=== PATIENT | female | born 1945 | race African-American/Black ===

== ENCOUNTER 2022-02-05 07:43 | Inpatient (IN) | payer OTHER, MEDICAID ==
[~2022-02-05] VITALS: Ht 165.1 cm; Wt 67.8 kg
[2022-02-05 08:48] LABS: BASOPHILS % 0.8 % (0.0-2.0); EOSINOPHILS % 0.8 % (0.0-5.0); HEMATOCRIT. 33.5 % (36.0-48.0); HEMOGLOBIN. 10.8 g/dL (12.0-16.0); LYMPHOCYTES % 16.6 % (20.0-50.0); MEAN CORPUSCULAR HEMOGLOBIN 27.3 pg (28.0-32.0); MEAN CORPUSCULAR VOLUME 84.6 fL (81.0-99.0); MEAN PLATELET VOLUME 10.2 fl (7.4-10.4); MONOCYTES % 11.3 % (2.0-8.0); NEUTROPHILS % 70.5 % (40.0-76.0); PLATELET 177 x1000/uL (130-400); RED BLOOD CELL COUNT 3.96 mill/uL (4.2-5.4); RED CELL DISTRIBUTION WIDTH 14.2 % (11.6-14.6)
[2022-02-05 08:58] LABS: CHLORIDE 105 mEq/L (98-107)
[2022-02-05] MEDS ORDERED: ASPIRIN 325MG EC TABLET PO ONE (09:30)
[2022-02-05] MEDS ORDERED: ENOXAPARIN 60MG/0.6ML SYR SUBCUT ONE (09:30)
[2022-02-05 09:56] LABS: CLARITY URINE CLEAR (CLEAR); COLOR URINE DARK YELLOW (YELLOW); KETONES URINE TRACE (NEGATIVE); LEUKOCYTE ESTERASE URINE TRACE (NEGATIVE); NITRITE URINE NEGATIVE (NEGATIVE); OCCULT BLOOD URINE NEGATIVE (NEGATIVE); PROTEIN URINE 3+ (NEGATIVE); SPECIFIC GRAVITY URINE 1.028 (1.005-1.030)
[2022-02-05] MEDS ORDERED: ACETAMINOPHEN 325MG TABLET PO ONE (11:15)
[2022-02-05] MEDS ORDERED: ONDANSETRON HCL 4MG/2ML INJ IV ONE (12:15)
[2022-02-05] MEDS ORDERED: GUAIFENESIN 200MG/10ML SUGAR FREE UDC PO PRN (13:00)
[2022-02-05] MEDS ORDERED: ACETAMINOPHEN 325MG TABLET PO PRN ×2 (13:00)
[2022-02-05] MEDS ORDERED: ZOLPIDEM TARTRATE 5MG TABLET PO PRN (13:00)
[2022-02-05] MEDS ORDERED: CLONIDINE 0.1MG TABLET PO PRN (13:00)
[2022-02-05] MEDS ORDERED: ENOXAPARIN 40MG/0.4ML SYR SUBCUT SCH (13:00)
[2022-02-05] MEDS ORDERED: NITROGLYCERIN 0.4MG TABLET SL SL PRN (13:00)
[2022-02-05] MEDS ORDERED: MAGNESIUM/ALUMINUM HYDROXIDE/SIMETHICONE 30ML UDC PO PRN (13:00)
[2022-02-05] MEDS ORDERED: IPRATROPIUM/ALBUTEROL 0.5-3(2.5)MG/3ML NEB NEB PRN (13:00)
[2022-02-05] MEDS ORDERED: DOCUSATE SODIUM 100MG CAPSULE PO PRN (13:00)
[2022-02-05] MEDS ORDERED: ONDANSETRON HCL 4MG/2ML INJ IV PRN (13:00)
[2022-02-05] MEDS ORDERED: KETOROLAC 15MG/ML VIAL IV PRN (13:00)
[2022-02-05 14:28] LABS: VITAMIN B12 SERUM 1518 pg/mL (211-911)
[2022-02-05 14:29] LABS: FOLIC ACID (FOLATE) SERUM > 20.00 ng/mL (>5.38)
[2022-02-05] MEDS: NITROGLYCERIN OINT 1GM/INCH UDPKT TD SCH ×2 (14:34→21:13)
[2022-02-05 15:07] LABS: CREATINE KINASE MB FRACTION 1.4 ng/mL (0.5-3.6)
[2022-02-05] MEDS: FUROSEMIDE 40MG/4ML VIAL IVP SCH (16:20)
[2022-02-05 18:01] VITALS: BP 145/83
[2022-02-05 18:04] VITALS: BP 145/83
[2022-02-05] MEDS ORDERED: SPIR25TA6 PO (18:22)
[2022-02-05] MEDS ORDERED: FURO-152 PO (18:22)
[2022-02-05] MEDS ORDERED: ATOR40TA70 PO (18:22)
[2022-02-05] MEDS ORDERED: COR6 PO (18:22)
[2022-02-05] MEDS ORDERED: ASPI-1497 PO (18:22)
[2022-02-05] MEDS ORDERED: AMLO5TAB4 PO (18:22)
[2022-02-05 20:00] VITALS: BP 151/85
[2022-02-05] MEDS: ATORVASTATIN CALCIUM 40MG TABLET PO SCH (21:13)
[2022-02-05] MEDS: LISINOPRIL 20MG TABLET PO SCH (21:13)
[2022-02-05 23:44] LABS: CREATINE KINASE MB FRACTION 1.5 ng/mL (0.5-3.6)
[2022-02-06] VITALS: BP 132/75
[2022-02-06 04:00] VITALS: BP 148/86
[2022-02-06] MEDS: NITROGLYCERIN OINT 1GM/INCH UDPKT TD SCH ×3 (06:18→22:00)
[2022-02-06 06:58] LABS: HEMATOCRIT. 30.9 % (36.0-48.0); HEMOGLOBIN. 10.3 g/dL (12.0-16.0); MEAN CORPUSCULAR HEMOGLOBIN 27.8 pg (28.0-32.0); MEAN CORPUSCULAR VOLUME 83.2 fL (81.0-99.0); MEAN PLATELET VOLUME 10.3 fl (7.4-10.4); PLATELET 158 x1000/uL (130-400); RED BLOOD CELL COUNT 3.72 mill/uL (4.2-5.4); RED CELL DISTRIBUTION WIDTH 14.5 % (11.6-14.6)
[2022-02-06 07:21] LABS: CHLORIDE 104 mEq/L (98-107)
[2022-02-06 07:32] LABS: PHOSPHORUS 4.9 mg/dL (2.5-4.9)
[2022-02-06 08:00] VITALS: BP 151/73
[2022-02-06] MEDS: ASPIRIN 81MG TABLET PO SCH (08:48)
[2022-02-06] MEDS: FUROSEMIDE 40MG/4ML VIAL IVP SCH ×2 (08:48→17:41)
[2022-02-06] MEDS: LISINOPRIL 20MG TABLET PO SCH (08:48)
[2022-02-06] MEDS: ENOXAPARIN 30MG/0.3ML SYR SUBCUT SCH (08:49)
[2022-02-06] MEDS ORDERED: ASPIRIN 325MG EC TABLET PO SCH (09:00)
[2022-02-06 11:02] LABS: PLATELET ESTIMATE NORMAL
[2022-02-06 12:00] VITALS: BP 169/82
[2022-02-06] MEDS: AMLODIPINE 10MG TABLET PO SCH (15:18)
[2022-02-06 16:00] VITALS: BP 136/77
[2022-02-06 20:06] VITALS: BP 131/65
[2022-02-06] MEDS: ATORVASTATIN CALCIUM 40MG TABLET PO SCH (20:20)
[2022-02-07] VITALS: BP 148/76
[2022-02-07 04:00] VITALS: BP 129/67
[2022-02-07] MEDS: NITROGLYCERIN OINT 1GM/INCH UDPKT TD SCH ×3 (05:48→20:51)
[2022-02-07] MEDS: FUROSEMIDE 40MG/4ML VIAL IVP SCH (05:48)
[2022-02-07 08:00] VITALS: BP 136/68
[2022-02-07] MEDS: ENOXAPARIN 30MG/0.3ML SYR SUBCUT SCH (08:28)
[2022-02-07] MEDS: AMLODIPINE 10MG TABLET PO SCH (08:28)
[2022-02-07] MEDS: ASPIRIN 81MG TABLET PO SCH (08:28)
[2022-02-07 12:00] VITALS: BP 107/59
[2022-02-07 16:00] VITALS: BP 100/67
[2022-02-07] MEDS: FUROSEMIDE 40MG TABLET PO SCH (17:14)
[2022-02-07] MEDS: LACTULOSE 20G/30ML UDC PO SCH ×2 (17:16→20:51)
[2022-02-07] MEDS ORDERED: FUROSEMIDE 40MG/4 ML UDC PO SCH (18:00)
[2022-02-07 20:00] VITALS: BP 131/57
[2022-02-07] MEDS: ATORVASTATIN CALCIUM 40MG TABLET PO SCH (20:50)
[2022-02-07] MEDS ORDERED: LACTULOSE 20G/30ML UDC PO SCH (22:00)
[2022-02-08 00:05] VITALS: BP 143/75
[2022-02-08 04:00] VITALS: BP 136/71
[2022-02-08] MEDS: NITROGLYCERIN OINT 1GM/INCH UDPKT TD SCH ×2 (05:27→13:53)
[2022-02-08] MEDS: FUROSEMIDE 40MG TABLET PO SCH (05:27)
[2022-02-08] MEDS: LACTULOSE 20G/30ML UDC PO SCH ×2 (05:27→13:52)
[2022-02-08] MEDS: ASPIRIN 81MG TABLET PO SCH (08:40)
[2022-02-08] MEDS: AMLODIPINE 10MG TABLET PO SCH (08:41)
[2022-02-08] MEDS: ENOXAPARIN 30MG/0.3ML SYR SUBCUT SCH (08:51)
[2022-02-08 11:07] VITALS: BP 131/65
[2022-02-08] MEDS ORDERED: FURO-151 MT (13:15)
[2022-02-08 14:05] VITALS: BP 130/72
== END 2022-02-08 14:55 | disposition home or self-care (01) | DRG 280 ==
LOC: ER 07:52 → EDBEDREQ 08:10 → 7WST 10:35 → EDBEDREQ 10:46 → EDBEDREQSVC 10:46 → EDBEDREQTM 10:46 → ENRESERV 14:47
PROVIDERS: ADMIT Internal Medicine; ATTEND Internal Medicine
DX: I21.4 Non-ST elevation (NSTEMI) myocardial infarction (principal); I50.23 Acute on chronic systolic (congestive) heart failure; K76.1 Chronic passive congestion of liver; E11.9 Type 2 diabetes mellitus without complications; I11.0 Hypertensive heart disease with heart failure; D63.8 Anemia in other chronic diseases classified elsewhere; Z20.822 Contact with and (suspected) exposure to COVID-19; R74.01 Elevation of levels of liver transaminase levels; I16.0 Hypertensive urgency; I25.10 Atherosclerotic heart disease of native coronary artery without angina pectoris; Z95.5 Presence of coronary angioplasty implant and graft
CPT/HCPCS: 36415; 71045; 80053; 80061; 81003; 82550; 82553; 82607; 82746; 83036; 83540; 83550; 83605; 83735; 83880; 84100; 84145; 84443; 84484; 85025; 87426; 87804; 93005; 93306; 93970; 99291; C9803; J1650; J1885; J1940; J2405

== ENCOUNTER 2022-04-02 18:30 | Emergency (ER) | payer SELFPAY ==
[~2022-04-02] VITALS: Ht 162.6 cm; Wt 66.0 kg
[~2022-04-02 18:30] MED LIST: AMLO5TAB4 PO; ASPI-1497 PO; ATOR40TA70 PO; COR6 PO; FURO-151 MT; SPIR25TA6 PO
[2022-04-02 18:32] VITALS: BP 79/76
[2022-04-02] MEDS ORDERED: FUROSEMIDE 40MG/4ML VIAL IV ONE (18:45)
[2022-04-02] MEDS ORDERED: ASPIRIN 81MG TABLET PO ONE (18:45)
[2022-04-02 19:06] LABS: CHLORIDE 107 mEq/L (98-107); HEMATOCRIT. 33.4 % (36.0-48.0); HEMOGLOBIN. 10.9 g/dL (12.0-16.0); MEAN CORPUSCULAR HEMOGLOBIN 26.5 pg (28.0-32.0); MEAN CORPUSCULAR VOLUME 81.4 fL (81.0-99.0); MEAN PLATELET VOLUME 9.9 fl (7.4-10.4); PLATELET 192 x1000/uL (130-400); RED CELL DISTRIBUTION WIDTH 16.1 % (11.6-14.6)
[2022-04-02 19:37] LABS: PLATELET ESTIMATE NORMAL
[2022-04-02 19:53] LABS: INR 1.1; PROTHROMBIN TIME 11.6 sec (9.6-11.0)
[2022-04-02] MEDS ORDERED: ENOXAPARIN 80MG/0.8ML SYR SUBCUT SCH (21:00)
== END 2022-04-03 00:15 | disposition left against medical advice (07) ==
LOC: ER 18:30
DX: I21.4 Non-ST elevation (NSTEMI) myocardial infarction (principal); I11.0 Hypertensive heart disease with heart failure; I50.9 Heart failure, unspecified; I48.91 Unspecified atrial fibrillation; Z79.899 Other long term (current) drug therapy
CPT/HCPCS: 36415; 71045; 80053; 83880; 84484; 85025; 93005; 99285

== ENCOUNTER 2022-04-18 12:12 | Inpatient (IN) | payer OTHER, MEDICAID ==
[~2022-04-18] VITALS: Ht 165.1 cm; Wt 50.9 kg
[2022-04-18 15:33] LABS: HEMATOCRIT. 32.1 % (36.0-48.0); HEMOGLOBIN. 10.5 g/dL (12.0-16.0); MEAN CORPUSCULAR HEMOGLOBIN 26.5 pg (28.0-32.0); MEAN PLATELET VOLUME 9.4 fl (7.4-10.4); PLATELET 204 x1000/uL (130-400); RED BLOOD CELL COUNT 3.97 mill/uL (4.2-5.4); RED CELL DISTRIBUTION WIDTH 16.7 % (11.6-14.6)
[2022-04-18 15:37] LABS: CHLORIDE 107 mEq/L (98-107)
[2022-04-18 15:39] LABS: INR 1.2; PROTHROMBIN TIME 12.5 sec (9.6-11.0)
[2022-04-18] MEDS ORDERED: ASPIRIN 325MG EC TABLET PO ONE (16:00)
[2022-04-18 16:53] LABS: PLATELET ESTIMATE NORMAL
[2022-04-18] MEDS ORDERED: ASPIRIN 325MG EC TABLET PO NR (18:45)
[2022-04-18] MEDS: ENOXAPARIN 60MG/0.6ML SYR SUBCUT SCH (22:12)
[2022-04-18] MEDS: CARVEDILOL 6.25 MG TABLET PO SCH (22:14)
[2022-04-18] MEDS: FAMOTIDINE 20MG TABLET PO SCH (22:15)
[2022-04-18] MEDS: ATORVASTATIN CALCIUM 40MG TABLET PO SCH (22:15)
[2022-04-18] MEDS ORDERED: ONDANSETRON HCL 4MG/2ML INJ IV PRN (23:30)
[2022-04-18] MEDS ORDERED: MAGNESIUM/ALUMINUM HYDROXIDE/SIMETHICONE 30ML UDC PO PRN (23:30)
[2022-04-18] MEDS ORDERED: CLONIDINE 0.1MG TABLET PO PRN (23:30)
[2022-04-18] MEDS ORDERED: ZOLPIDEM TARTRATE 5MG TABLET PO PRN (23:30)
[2022-04-18] MEDS ORDERED: ACETAMINOPHEN 325MG TABLET PO PRN ×2 (23:30)
[2022-04-18] MEDS ORDERED: NA PHOS,M-B/NA PHOS,DI-BA ENEMA 118ML PR PRN (23:30)
[2022-04-18] MEDS ORDERED: IPRATROPIUM/ALBUTEROL 0.5-3(2.5)MG/3ML NEB NEB PRN (23:30)
[2022-04-18] MEDS ORDERED: DOCUSATE SODIUM 100MG CAPSULE PO PRN (23:30)
[2022-04-18] MEDS ORDERED: GUAIFENESIN 200MG/10ML SUGAR FREE UDC PO PRN (23:30)
[2022-04-19 04:00] VITALS: BP 112/61
[2022-04-19 05:06] VITALS: BP 112/61
[2022-04-19] MEDS: ENOXAPARIN 60MG/0.6ML SYR SUBCUT SCH ×2 (06:24→17:32)
[2022-04-19 08:00] VITALS: BP 125/68
[2022-04-19 08:11] LABS: HEMATOCRIT. 29.2 % (36.0-48.0); HEMOGLOBIN. 9.8 g/dL (12.0-16.0); MEAN CORPUSCULAR HEMOGLOBIN 26.8 pg (28.0-32.0); MEAN CORPUSCULAR VOLUME 79.9 fL (81.0-99.0); MEAN PLATELET VOLUME 9.6 fl (7.4-10.4); PLATELET 181 x1000/uL (130-400); RED BLOOD CELL COUNT 3.65 mill/uL (4.2-5.4)
[2022-04-19 08:25] LABS: CHLORIDE 106 mEq/L (98-107)
[2022-04-19 08:42] LABS: CREATINE KINASE 49 IU/L (26-192); CREATINE KINASE MB FRACTION < 1.0 ng/mL (0.5-3.6); HDL CHOLESTEROL 46 mg/dL (40-59); LDL CHOLESTEROL 63 mg/dL (5-100); PHOSPHORUS 3.2 mg/dL (2.5-4.9)
[2022-04-19] MEDS ORDERED: SPIRONOLACTONE 5MG/ML 1ML ORAL SYR(NEO) PO SCH (09:00)
[2022-04-19] MEDS: FUROSEMIDE 40MG/4ML VIAL IVP SCH (09:23)
[2022-04-19] MEDS: AMLODIPINE 5MG TABLET PO SCH (09:24)
[2022-04-19] MEDS: CARVEDILOL 6.25 MG TABLET PO SCH (09:24)
[2022-04-19] MEDS: ASPIRIN 81MG EC TABLET PO SCH (09:24)
[2022-04-19] MEDS: SPIRONOLACTONE 25MG TABLET PO SCH (09:24)
[2022-04-19 12:00] VITALS: BP_SYST 109; BP_SYST 118; BP_DIAS 47; BP_DIAS 55
[2022-04-19 14:17] LABS: NUCLEATED RED BLOOD CELLS 1 /100 WBC
[2022-04-19 14:19] LABS: PLATELET ESTIMATE NORMAL
[2022-04-19 16:00] VITALS: BP 118/55
[2022-04-19 17:34] LABS: CREATINE KINASE MB FRACTION 1.1 ng/mL (0.5-3.6)
[2022-04-19 20:00] VITALS: BP 119/65
[2022-04-19] MEDS: CARVEDILOL 3.125 MG TABLET PO SCH (22:38)
[2022-04-19] MEDS: FAMOTIDINE 20MG TABLET PO SCH (22:39)
[2022-04-19] MEDS: ATORVASTATIN CALCIUM 40MG TABLET PO SCH (22:39)
[2022-04-20] VITALS: BP 120/71
[2022-04-20 04:00] VITALS: BP 130/66
[2022-04-20] MEDS: ENOXAPARIN 60MG/0.6ML SYR SUBCUT SCH ×2 (06:00→17:27)
[2022-04-20 06:36] LABS: HEMATOCRIT. 30.7 % (36.0-48.0); HEMOGLOBIN. 10.1 g/dL (12.0-16.0); MEAN CORPUSCULAR HEMOGLOBIN 26.7 pg (28.0-32.0); MEAN PLATELET VOLUME 9.4 fl (7.4-10.4); PLATELET 171 x1000/uL (130-400); RED CELL DISTRIBUTION WIDTH 16.8 % (11.6-14.6)
[2022-04-20 06:46] LABS: CHLORIDE 106 mEq/L (98-107)
[2022-04-20 08:00] VITALS: BP 134/83
[2022-04-20] MEDS ORDERED: NITROGLYCERIN 50MCG/ML 10ML VIAL (CATH LAB) IV ONE (08:12)
[2022-04-20] MEDS ORDERED: NICARDIPINE 100MCG/ML 10ML VIAL (CATH LAB) IV ONE (08:12)
[2022-04-20] MEDS: FUROSEMIDE 40MG/4ML VIAL IVP SCH (08:50)
[2022-04-20] MEDS: CARVEDILOL 3.125 MG TABLET PO SCH ×2 (08:52→21:43)
[2022-04-20] MEDS: SPIRONOLACTONE 25MG TABLET PO SCH (08:52)
[2022-04-20] MEDS: AMLODIPINE 5MG TABLET PO SCH (08:53)
[2022-04-20] MEDS: ASPIRIN 81MG EC TABLET PO SCH (08:53)
[2022-04-20 09:02] LABS: PLATELET ESTIMATE NORMAL
[2022-04-20] MEDS ORDERED: IODIXANOL 320MG/ML 100 ML BOTTLE IV ONE ×3 (10:00→12:58)
[2022-04-20] MEDS ORDERED: HEPARIN 1000 UNITS/ML 10ML ONE (10:57)
[2022-04-20] MEDS ORDERED: MIDAZOLAM HCL 2 MG/2 ML VIAL ONE (10:58)
[2022-04-20] MEDS ORDERED: FENTANYL CITRATE/PF 50MCG/ML 2ML VIAL ONE (10:58)
[2022-04-20] MEDS ORDERED: LIDOCAINE HCL/PF 2% 20MG/ML 5 ML/VIAL ONE (12:37)
[2022-04-20] MEDS ORDERED: ATROPINE SULFATE 1MG/10ML SYR IV PRN (13:30)
[2022-04-20] MEDS ORDERED: ACETAMINOPHEN 325MG TABLET PO PRN (13:30)
[2022-04-20] MEDS ORDERED: SODIUM CHLORIDE 0.45% 1,000 ML IV ONE (13:30)
[2022-04-20 16:00] VITALS: BP 133/79
[2022-04-20 20:00] VITALS: BP 138/61
[2022-04-20] MEDS: FAMOTIDINE 20MG TABLET PO SCH (21:43)
[2022-04-20] MEDS: ATORVASTATIN CALCIUM 40MG TABLET PO SCH (21:43)
[2022-04-21] VITALS: BP 135/65
[2022-04-21 04:00] VITALS: BP 111/65
[2022-04-21] MEDS: ENOXAPARIN 60MG/0.6ML SYR SUBCUT SCH ×2 (06:02→17:15)
[2022-04-21 06:37] LABS: EOSINOPHILS % 0.9 % (0.0-5.0); HEMOGLOBIN. 10.5 g/dL (12.0-16.0); LYMPHOCYTES % 36.9 % (20.0-50.0); MEAN CORPUSCULAR HEMOGLOBIN 26.6 pg (28.0-32.0); MEAN CORPUSCULAR VOLUME 80.9 fL (81.0-99.0); MEAN PLATELET VOLUME 9.6 fl (7.4-10.4); MONOCYTES % 14.7 % (2.0-8.0); NEUTROPHILS % 46.5 % (40.0-76.0); PLATELET 193 x1000/uL (130-400); RED BLOOD CELL COUNT 3.95 mill/uL (4.2-5.4); RED CELL DISTRIBUTION WIDTH 17.1 % (11.6-14.6)
[2022-04-21 06:50] LABS: CHLORIDE 103 mEq/L (98-107)
[2022-04-21 08:00] VITALS: BP 122/79
[2022-04-21] MEDS: ASPIRIN 81MG EC TABLET PO SCH (08:57)
[2022-04-21] MEDS: CARVEDILOL 3.125 MG TABLET PO SCH ×2 (08:58→21:00)
[2022-04-21] MEDS: AMLODIPINE 5MG TABLET PO SCH (08:58)
[2022-04-21] MEDS: FUROSEMIDE 40MG/4ML VIAL IVP SCH (08:59)
[2022-04-21] MEDS: SPIRONOLACTONE 25MG TABLET PO SCH (08:59)
[2022-04-21] MEDS ORDERED: POTASSIUM CHLORIDE 20MEQ TABLET SR PO NR (09:30)
[2022-04-21 12:00] VITALS: BP 109/55
[2022-04-21 16:00] VITALS: BP 115/68
[2022-04-21 20:00] VITALS: BP 107/55
[2022-04-21] MEDS: ATORVASTATIN CALCIUM 40MG TABLET PO SCH (21:05)
[2022-04-21] MEDS: FAMOTIDINE 20MG TABLET PO SCH (21:05)
[2022-04-22] VITALS (7 sets, daily range): BP systolic 102–129; BP diastolic 57–76
[2022-04-22] MEDS: ENOXAPARIN 60MG/0.6ML SYR SUBCUT SCH ×2 (05:48→17:43)
[2022-04-22 07:02] LABS: HEMATOCRIT. 31.2 % (36.0-48.0); HEMOGLOBIN. 10.4 g/dL (12.0-16.0); MEAN CORPUSCULAR HEMOGLOBIN 26.8 pg (28.0-32.0); MEAN PLATELET VOLUME 9.9 fl (7.4-10.4); PLATELET 178 x1000/uL (130-400); RED BLOOD CELL COUNT 3.91 mill/uL (4.2-5.4); RED CELL DISTRIBUTION WIDTH 16.9 % (11.6-14.6)
[2022-04-22 07:04] LABS: CHLORIDE 107 mEq/L (98-107)
[2022-04-22] MEDS: CARVEDILOL 3.125 MG TABLET PO SCH ×2 (09:23→21:26)
[2022-04-22] MEDS: AMLODIPINE 5MG TABLET PO SCH (09:23)
[2022-04-22] MEDS: FUROSEMIDE 40MG/4ML VIAL IVP SCH (09:23)
[2022-04-22] MEDS: ASPIRIN 81MG EC TABLET PO SCH (09:23)
[2022-04-22] MEDS: SPIRONOLACTONE 25MG TABLET PO SCH (09:24)
[2022-04-22 11:50] LABS: PLATELET ESTIMATE NORMAL
[2022-04-22] MEDS ORDERED: IOHEXOL-350 100 ML BOTTLE ONE (13:04)
[2022-04-22] MEDS: FAMOTIDINE 20MG TABLET PO SCH (21:26)
[2022-04-22] MEDS: ATORVASTATIN CALCIUM 40MG TABLET PO SCH (21:26)
[2022-04-23 04:00] VITALS: BP 113/60
[2022-04-23] MEDS: ENOXAPARIN 60MG/0.6ML SYR SUBCUT SCH (05:42)
[2022-04-23 07:51] LABS: CHLORIDE 106 mEq/L (98-107)
[2022-04-23 08:00] VITALS: BP 114/74
[2022-04-23 08:05] LABS: HEMATOCRIT. 32.1 % (36.0-48.0); HEMOGLOBIN. 10.4 g/dL (12.0-16.0); MEAN CORPUSCULAR HEMOGLOBIN 26.2 pg (28.0-32.0); MEAN CORPUSCULAR VOLUME 81.1 fL (81.0-99.0); PLATELET 180 x1000/uL (130-400); RED BLOOD CELL COUNT 3.96 mill/uL (4.2-5.4); RED CELL DISTRIBUTION WIDTH 17.4 % (11.6-14.6)
[2022-04-23] MEDS: FUROSEMIDE 40MG/4ML VIAL IVP SCH (09:53)
[2022-04-23] MEDS: ASPIRIN 81MG EC TABLET PO SCH (09:54)
[2022-04-23] MEDS: AMLODIPINE 5MG TABLET PO SCH (09:54)
[2022-04-23] MEDS: SPIRONOLACTONE 25MG TABLET PO SCH (09:54)
[2022-04-23] MEDS: CARVEDILOL 3.125 MG TABLET PO SCH (09:54)
[2022-04-23] MEDS ORDERED: APIX5TAB MT (11:23)
[2022-04-23] MEDS ORDERED: AMLO5TAB4 PO (11:23)
[2022-04-23] MEDS ORDERED: ASPI-1497 PO (11:23)
[2022-04-23] MEDS ORDERED: FAMO-135 MT (11:23)
[2022-04-23] MEDS ORDERED: FURO-151 MT (11:23)
[2022-04-23] MEDS ORDERED: COR6 PO (11:23)
[2022-04-23] MEDS ORDERED: SPIR25TA6 PO (11:23)
[2022-04-23] MEDS ORDERED: ATOR40TA70 PO (11:23)
[2022-04-23 11:32] LABS: PLATELET ESTIMATE NORMAL
[2022-04-23 12:00] VITALS: BP 121/62
[2022-04-23 13:59] VITALS: BP 132/81
[2022-04-23 16:00] VITALS: BP 112/59
== END 2022-04-23 15:55 | disposition home or self-care (01) | DRG 280 ==
LOC: ER 15:24 → 8WST 16:53 → EDBEDREQ 16:54 → EDBEDREQTM 16:54 → ENRESERV 20:19
PROVIDERS: ADMIT Internal Medicine; ATTEND Internal Medicine
PROC: 4A023N7 Measurement of Cardiac Sampling and Pressure, Left Heart, Percutaneous Approach (ICD-10-PCS; principal; 2022-04-20)
PROC: B2111ZZ Fluoroscopy of Multiple Coronary Arteries using Low Osmolar Contrast (ICD-10-PCS; 2022-04-20)
PROC: B3101ZZ Fluoroscopy of Thoracic Aorta using Low Osmolar Contrast (ICD-10-PCS; 2022-04-20)
DX: I21.4 Non-ST elevation (NSTEMI) myocardial infarction (principal); I50.23 Acute on chronic systolic (congestive) heart failure; I42.9 Cardiomyopathy, unspecified; I11.0 Hypertensive heart disease with heart failure; Z20.822 Contact with and (suspected) exposure to COVID-19; I48.91 Unspecified atrial fibrillation; D64.9 Anemia, unspecified; D72.819 Decreased white blood cell count, unspecified; I25.10 Atherosclerotic heart disease of native coronary artery without angina pectoris; E80.6 Other disorders of bilirubin metabolism; I35.1 Nonrheumatic aortic (valve) insufficiency; I77.810 Thoracic aortic ectasia; Z98.61 Coronary angioplasty status; Z79.899 Other long term (current) drug therapy; Z79.82 Long term (current) use of aspirin; Z82.49 Family history of ischemic heart disease and other diseases of the circulatory system; Z83.3 Family history of diabetes mellitus
CPT/HCPCS: 36415; 71045; 71275; 80053; 80061; 82550; 82553; 83735; 83880; 84100; 84484; 85025; 87426; 93005; 93306; 93458; 93567; 93970; 99291; C1769; C1887; C1893; J1644; J1650; J1940; J2250; J3010; J3490; Q9967